=== PATIENT | male | born 1970 | race Caucasian/White ===

== ENCOUNTER 2017-05-01 18:26 | Emergency (ER) | payer BC, OTHER ==
[~2017-05-01] VITALS: Ht 182.8 cm; Wt 104.3 kg
[~2017-05-01 18:26] MED LIST: CLARITIN10 MG PO; CYCLOBENZAPRINE10 MG PO; ULTRAM50 MG PO; ZANTAC150 MG PO; ZITHROMAX Z PA250 MG PO
[2017-05-01 18:55] LABS: BASO # 0.1 10*3/uL (0.0-0.1); BASO % 0.9 % (0.0-1.0); EOS # 0.4 10*3/uL (0.0-0.4); EOS % 4.6 % (1.0-4.0); HEMATOCRIT 46.9 % (42.0-52.0); HEMOGLOBIN 15.5 g/dl (14.0-18.0); LYMPH # 2.5 10*3/uL (1.3-4.4); LYMPH % 29.6 % (27.0-41.0); MEAN CELL VOLUME 95.7 fl (80.0-94.0); MEAN CORPUSCULAR HGB 31.6 pg (27.0-31.0); MEAN PLATELET VOLUME 8.8 fl (9.6-12.3); MONO # 0.9 10*3/uL (0.1-1.0); MONO % 10.4 % (3.0-9.0); NEUT # 4.6 10*3/uL (2.3-7.9); PLATELET COUNT AUTOMATED 234 10*3/uL (130-400); RED CELL DISTRI WIDTH 13.3 % (0-14.5); WHITE BLOOD COUNT 8.6 10*3/uL (4.8-10.8)
[2017-05-01 19:05] LABS: BUN 13 mg/dl (7-24); CHLORIDE 106 mmol/L (98-107); POTASSIUM 4.7 mmol/L (3.5-5.1); SODIUM 141 mmol/L (136-145); URIC ACID 6.2 mg/dL (3.5-7.2)
[2017-05-01] MEDS ORDERED: COLCRYS0.6 M1 PO (19:08)
== END 2017-05-01 20:14 | disposition home or self-care (01) ==
LOC: ED 18:26
PROVIDERS: Nurse Practitioner Family
DX: M10.9 Gout, unspecified (principal); M79.674 Pain in right toe(s); F17.200 Nicotine dependence, unspecified, uncomplicated

== ENCOUNTER → 2017-10-23 | Outpatient (CLI) | payer BC ==
[~2017-10-23] MED LIST changes: +COLCRYS0.6 M1 PO
[2017-10-23 09:02] LABS: ALBUMIN 3.7 gm/dl (3.1-4.5); ALKALINE PHOSPHATASE 94 U/L (45-117); BUN 23 mg/dl (7-24); CHLORIDE 107 mmol/L (98-107); CHOLESTEROL 184 mg/dL (<200); CREATININE 1.25 mg/dL (0.70-1.30); HDL CHOLESTEROL 38 mg/dl (40-60); LDL CHOLESTEROL 125 mg/dL (9-159); POTASSIUM 4.5 mmol/L (3.5-5.1); SGOT/AST 16 IU/L (3-35); SGPT/ALT 27 U/L (12-78); SODIUM 141 mmol/L (136-145); TOTAL PROTEIN 7.6 gm/dL (6.4-8.2); TRIGLYCERIDES 103 mg/dl (<150); VLDL CHOLESTEROL 21 mg/dL (6-40)
[2017-10-23 09:04] LABS: HEMATOCRIT 49.2 % (42.0-52.0); HEMOGLOBIN 16.3 g/dl (14.0-18.0); MEAN CELL VOLUME 94.6 fl (80.0-94.0); MEAN CORPUSCULAR HGB 31.3 pg (27.0-31.0); MEAN CORPUSCULAR HGB CONC 33.1 g/dl (33.0-37.0); MEAN PLATELET VOLUME 9.1 fl (9.6-12.3); RED BLOOD COUNT 5.2 10*6/uL (4.50-5.90); WHITE BLOOD COUNT 7.7 10*3/uL (4.8-10.8)
[2017-10-23 09:10] LABS: VITAMIN D, 25-HYDROXY 17.9 ng/mL (30-100)
[2017-10-25 12:06] LABS: TESTOSTERONE FREE, (DIRECT) 8.7 pg/mL (6.8-21.5)
== END | disposition home or self-care (01) ==
LOC: LAB 07:27
PROVIDERS: Family Medicine
DX: E78.00 Pure hypercholesterolemia, unspecified (principal); M25.50 Pain in unspecified joint; E55.9 Vitamin D deficiency, unspecified; M79.1 Myalgia

== ENCOUNTER → 2018-11-28 | Outpatient (CLI) | payer OTHER ==
[~2018-11-28] MED LIST changes: +CIPRO500 MG PO; +FLAGYL500 MG PO; +Motrin,Rufen800 MG PO
== END | disposition home or self-care (01) ==
LOC: US 00:26
DX: I73.9 Peripheral vascular disease, unspecified (principal); L81.9 Disorder of pigmentation, unspecified; R20.2 Paresthesia of skin

== ENCOUNTER → 2019-02-17 | Outpatient (CLI) | payer OTHER | END | disposition home or self-care (01) | LOC: ORTHO 01:18 | DX: M79.641 Pain in right hand (principal) ==

== ENCOUNTER 2019-03-13 08:50 | Emergency (ER) | payer OTHER ==
[~2019-03-13] VITALS: Ht 182.8 cm; Wt 106.6 kg
[~2019-03-13 08:50] MED LIST changes: -CIPRO500 MG PO; -FLAGYL500 MG PO; -Motrin,Rufen800 MG PO
[2019-03-13 09:38] LABS: BASO # 0.1 10*3/uL (0.0-0.1); BASO % 0.6 % (0.0-1.0); EOS # 0.1 10*3/uL (0.0-0.4); EOS % 0.9 % (1.0-4.0); HEMATOCRIT 46.4 % (42.0-52.0); HEMOGLOBIN 15.4 g/dl (14.0-18.0); LYMPH # 1.3 10*3/uL (1.3-4.4); LYMPH % 10.1 % (27.0-41.0); MEAN CELL VOLUME 95.5 fl (80.0-94.0); MEAN CORPUSCULAR HGB 31.7 pg (27.0-31.0); MEAN CORPUSCULAR HGB CONC 33.2 g/dl (33.0-37.0); MEAN PLATELET VOLUME 9.1 fl (9.6-12.3); MONO # 1.2 10*3/uL (0.1-1.0); MONO % 9.1 % (3.0-9.0); PLATELET COUNT AUTOMATED 229 10*3/uL (130-400); RED BLOOD COUNT 4.86 10*6/uL (4.50-5.90); RED CELL DISTRI WIDTH 13.3 % (0-14.5); WHITE BLOOD COUNT 12.7 10*3/uL (4.8-10.8)
[2019-03-13 09:52] LABS: ALBUMIN 3.7 gm/dl (3.1-4.5); ALKALINE PHOSPHATASE 80 U/L (45-117); BUN 10 mg/dl (7-24); CHLORIDE 108 mmol/L (98-107); CREATININE 0.84 mg/dL (0.70-1.30); LIPASE 79 U/L (73-393); POTASSIUM 3.8 mmol/L (3.5-5.1); SGOT/AST 12 IU/L (3-35); SGPT/ALT 18 U/L (12-78); SODIUM 139 mmol/L (136-145); TOTAL PROTEIN 7.3 gm/dL (6.4-8.2)
[2019-03-13 10:25] LABS: BILIRUBIN NEGATIVE (NEGATIVE); BLOOD NEGATIVE (NEGATIVE); CLARITY CLEAR (CLEAR); COLOR YELLOW (YELLOW); GLUCOSE NEGATIVE (NEGATIVE); KETONE NEGATIVE (NEGATIVE); LEUKO ESTERASE NEGATIVE (NEGATIVE); NITRITE NEGATIVE (NEGATIVE); SPECIFIC GRAVITY <= 1.005 (1.005-1.030); UROBILINOGEN 0.2 E.U./dl (0.2-1.0)
[2019-03-13] MEDS ORDERED: CIPRO500 MG PO (11:02)
[2019-03-13] MEDS ORDERED: Motrin,Rufen800 MG PO (11:02)
[2019-03-13] MEDS ORDERED: FLAGYL500 MG PO (11:02)
== END 2019-03-13 11:14 | disposition home or self-care (01) ==
LOC: ED 08:50
PROVIDERS: Emergency Medicine
DX: K57.32 Diverticulitis of large intestine without perforation or abscess without bleeding (principal); Z79.899 Other long term (current) drug therapy

== ENCOUNTER → 2019-04-09 | Outpatient (CLI) | payer OTHER ==
[~2019-04-09] MED LIST changes: +CIPRO500 MG PO; +FLAGYL500 MG PO; +Motrin,Rufen800 MG PO
[2019-04-09 14:23] LABS: HEMATOCRIT 49.3 % (42.0-52.0); HEMOGLOBIN 16.1 g/dl (14.0-18.0); MEAN CELL VOLUME 95.5 fl (80.0-94.0); MEAN CORPUSCULAR HGB 31.2 pg (27.0-31.0); MEAN CORPUSCULAR HGB CONC 32.7 g/dl (33.0-37.0); MEAN PLATELET VOLUME 8.9 fl (9.6-12.3); RED BLOOD COUNT 5.16 10*6/uL (4.50-5.90); RED CELL DISTRI WIDTH 13.1 % (0-14.5); WHITE BLOOD COUNT 14.3 10*3/uL (4.8-10.8)
[2019-04-09 14:37] LABS: ALBUMIN 3.8 gm/dl (3.1-4.5); ALKALINE PHOSPHATASE 91 U/L (45-117); BUN 12 mg/dl (7-24); CHLORIDE 106 mmol/L (98-107); CREATININE 1.03 mg/dL (0.70-1.30); POTASSIUM 4.4 mmol/L (3.5-5.1); SGOT/AST 14 IU/L (3-35); SGPT/ALT 20 U/L (12-78); SODIUM 138 mmol/L (136-145); TOTAL PROTEIN 7.4 gm/dL (6.4-8.2)
== END | disposition home or self-care (01) ==
LOC: LAB 14:06
PROVIDERS: Family Medicine
DX: K57.92 Diverticulitis of intestine, part unspecified, without perforation or abscess without bleeding (principal)

== ENCOUNTER → 2020-01-15 | Outpatient (CLI) | payer OTHER ==
[2020-01-15 08:31] LABS: HEMATOCRIT 49.1 % (42.0-52.0); MEAN CELL VOLUME 93.3 fl (80.0-94.0); MEAN CORPUSCULAR HGB 31.2 pg (27.0-31.0); MEAN CORPUSCULAR HGB CONC 33.4 g/dl (33.0-37.0); MEAN PLATELET VOLUME 9.1 fl (9.6-12.3); RED BLOOD COUNT 5.26 10*6/uL (4.50-5.90); RED CELL DISTRI WIDTH 13.1 % (0-14.5); WHITE BLOOD COUNT 6.4 10*3/uL (4.8-10.8)
[2020-01-15 09:01] LABS: BUN 19 mg/dl (7-24); CHLORIDE 110 mmol/L (98-107); CHOLESTEROL 194 mg/dL (<200); CREATININE 1.02 mg/dL (0.70-1.30); SGOT/AST 23 IU/L (3-35); SGPT/ALT 29 U/L (12-78); SODIUM 138 mmol/L (136-145); TOTAL PROTEIN 7.3 gm/dL (6.4-8.2); TRIGLYCERIDES 149 mg/dl (<150); VLDL CHOLESTEROL 30 mg/dL (6-40)
[2020-01-15 09:10] LABS: ALKALINE PHOSPHATASE 89 U/L (45-117); CPK 170 U/L (39-308); HDL CHOLESTEROL 36 mg/dl (40-60); LDL CHOLESTEROL 128 mg/dL (9-159)
== END | disposition home or self-care (01) ==
LOC: LAB 06:52
PROVIDERS: Family Medicine
DX: M19.90 Unspecified osteoarthritis, unspecified site (principal); E78.00 Pure hypercholesterolemia, unspecified; E55.9 Vitamin D deficiency, unspecified; R53.83 Other fatigue

== ENCOUNTER → 2020-07-10 | Outpatient (CLI) | payer OTHER | END | disposition home or self-care (01) | LOC: RAD 12:17 | PROVIDERS: ATTEND Family Medicine | DX: R05 Cough (principal); R06.02 Shortness of breath ==

== ENCOUNTER → 2020-12-30 | Outpatient (CLI) | payer OTHER | END | disposition home or self-care (01) | LOC: RAD 14:44 | PROVIDERS: ATTEND Family Medicine | DX: R06.02 Shortness of breath (principal) ==

== ENCOUNTER → 2021-01-01 | Outpatient (CLI) | payer OTHER ==
[2021-01-01 11:45] LABS: BASO % 0.6 % (0.0-1.0); EOS # 0.1 10*3/uL (0.0-0.4); EOS % 2.9 % (1.0-4.0); LYMPH # 1.1 10*3/uL (1.3-4.4); LYMPH % 22.4 % (27.0-41.0); MEAN CELL VOLUME 91.9 fl (80.0-94.0); MEAN CORPUSCULAR HGB 30.8 pg (27.0-31.0); MEAN CORPUSCULAR HGB CONC 33.5 g/dl (33.0-37.0); MEAN PLATELET VOLUME 9.5 fl (9.6-12.3); MONO # 0.5 10*3/uL (0.1-1.0); NEUT % 62.5 % (47.0-73.0); PLATELET COUNT AUTOMATED 207 10*3/uL (130-400); RED BLOOD COUNT 5.33 10*6/uL (4.50-5.90); RED CELL DISTRI WIDTH 13.1 % (0-14.5); WHITE BLOOD COUNT 4.8 10*3/uL (4.8-10.8)
[2021-01-01 12:33] LABS: ALBUMIN 3.6 gm/dl (3.1-4.5); BUN 13 mg/dl (7-24); CHLORIDE 105 mmol/L (98-107); POTASSIUM 4.3 mmol/L (3.5-5.1); SGPT/ALT 68 U/L (12-78); SODIUM 139 mmol/L (136-145)
[2021-01-01 12:35] LABS: ALKALINE PHOSPHATASE 94 U/L (45-117); CREATININE 0.99 mg/dL (0.70-1.30); SGOT/AST 34 IU/L (3-35); TOTAL PROTEIN 7.2 gm/dL (6.4-8.2)
== END | disposition home or self-care (01) ==
LOC: LAB 10:53
PROVIDERS: ATTEND Family Medicine
DX: R53.83 Other fatigue (principal)

== ENCOUNTER → 2021-09-22 | Outpatient (CLI) | payer OTHER ==
[2021-09-22 16:25] LABS: ALBUMIN 3.9 gm/dl (3.1-4.5); ALKALINE PHOSPHATASE 94 U/L (45-117); BUN 14 mg/dl (7-24); CHLORIDE 106 mmol/L (98-107); CREATININE 0.87 mg/dL (0.70-1.30); POTASSIUM 3.9 mmol/L (3.5-5.1); SGOT/AST 16 IU/L (3-35); SGPT/ALT 33 U/L (12-78); SODIUM 139 mmol/L (136-145); TOTAL PROTEIN 7.5 gm/dL (6.4-8.2)
== END | disposition home or self-care (01) ==
LOC: LAB 15:30
PROVIDERS: ATTEND Family Medicine
DX: U07.1 COVID-19 (principal)

== ENCOUNTER → 2021-09-29 | Outpatient (CLI) | payer OTHER | END | disposition home or self-care (01) | LOC: RAD 08:30 | PROVIDERS: ATTEND Family Medicine | DX: R07.89 Other chest pain (principal); Z86.16 Personal history of COVID-19 ==

== ENCOUNTER → 2021-10-23 | Day surgery (SDC) | payer OTHER ==
[~2021-10-23] VITALS: Ht 779.7 cm
[2021-10-23 11:12] VITALS: BP 117/81
[2021-10-23 11:55] VITALS: BP 103/62
[2021-10-23 12:10] VITALS: BP 123/77
[2021-10-23 12:25] VITALS: BP 124/78
== END | disposition home or self-care (01) ==
LOC: SDC 09-19 13:15
PROVIDERS: ATTEND Surgery
DX: Z12.11 Encounter for screening for malignant neoplasm of colon (principal); D12.4 Benign neoplasm of descending colon; F17.210 Nicotine dependence, cigarettes, uncomplicated; Z79.899 Other long term (current) drug therapy; Z20.822 Contact with and (suspected) exposure to COVID-19

== ENCOUNTER → 2022-07-02 | Outpatient (CLI) | payer OTHER | END | disposition home or self-care (01) | LOC: RAD 14:00 | PROVIDERS: ATTEND Family Medicine | DX: R06.02 Shortness of breath (principal) ==

== ENCOUNTER → 2022-07-13 | Outpatient (CLI) | payer OTHER ==
[2022-07-13 15:49] LABS: HEMATOCRIT 48.7 % (42.0-52.0); MEAN CELL VOLUME 92.8 fl (80.0-94.0); MEAN CORPUSCULAR HGB 31.8 pg (27.0-31.0); MEAN CORPUSCULAR HGB CONC 34.3 g/dl (33.0-37.0); MEAN PLATELET VOLUME 8.9 fl (9.6-12.3); RED BLOOD COUNT 5.25 10*6/uL (4.50-5.90); RED CELL DISTRI WIDTH 12.8 % (0-14.5); WHITE BLOOD COUNT 9.6 10*3/uL (4.8-10.8)
[2022-07-13 16:11] LABS: BUN 19 mg/dl (7-24); CHLORIDE 107 mmol/L (98-107); CHOLESTEROL 240 mg/dL (<200); CREATININE 0.81 mg/dL (0.70-1.30); SGOT/AST 20 IU/L (3-35); SGPT/ALT 33 U/L (12-78); SODIUM 136 mmol/L (136-145); TRIGLYCERIDES 334 mg/dl (<150)
[2022-07-13 16:17] LABS: ALKALINE PHOSPHATASE 98 U/L (45-117); FREE T4 0.93 ng/dl (0.76-1.46); LDL CHOLESTEROL 135 mg/dL (9-159); TOTAL PROTEIN 7.4 gm/dL (6.4-8.2)
[2022-07-13 16:43] LABS: VITAMIN D, 25-HYDROXY 33.3 ng/mL (30-100)
[2022-07-17 15:06] LABS: TESTOSTERONE FREE, (DIRECT) 7.6 pg/mL (7.2-24.0)
== END | disposition home or self-care (01) ==
LOC: LAB 15:20
PROVIDERS: ATTEND Family Medicine
DX: Z13.220 Encounter for screening for lipoid disorders (principal); Z12.5 Encounter for screening for malignant neoplasm of prostate; E55.9 Vitamin D deficiency, unspecified; R06.2 Wheezing; R53.83 Other fatigue; R05.9 Cough, unspecified

== ENCOUNTER → 2025-02-06 | Outpatient (CLI) | payer OTHER ==
[2025-02-06 09:34] LABS: HEMATOCRIT 50.6 % (42.0-52.0); MEAN CELL VOLUME 95.1 fl (80.0-94.0); MEAN CORPUSCULAR HGB 31.2 pg (27.0-31.0); MEAN CORPUSCULAR HGB CONC 32.8 g/dl (33.0-37.0); MEAN PLATELET VOLUME 8.7 fl (9.6-12.3); RED BLOOD COUNT 5.32 10*6/uL (4.50-5.90); RED CELL DISTRI WIDTH 13.9 % (0-14.5); WHITE BLOOD COUNT 7.5 10*3/uL (4.8-10.8)
[2025-02-06 10:18] LABS: ALKALINE PHOSPHATASE 84 U/L (46-116); BUN 15 mg/dl (9-23); CHLORIDE 109 mmol/L (98-107); CHOLESTEROL 218 mg/dL (<200); LDL CHOLESTEROL 139 mg/dL (9-159); SGPT/ALT 16 U/L (5-49); TRIGLYCERIDES 151 mg/dl (<150)
[2025-02-06 10:21] LABS: VITAMIN D, 25-HYDROXY 31.6 ng/mL (30-100)
== END | disposition home or self-care (01) ==
LOC: LAB 09:11
PROVIDERS: ATTEND Family Medicine
DX: E74.9 Disorder of carbohydrate metabolism, unspecified (principal); N52.9 Male erectile dysfunction, unspecified; Z12.5 Encounter for screening for malignant neoplasm of prostate; E55.9 Vitamin D deficiency, unspecified; R53.83 Other fatigue; R53.82 Chronic fatigue, unspecified; Z00.00 Encounter for general adult medical examination without abnormal findings

== ENCOUNTER → 2025-06-11 | Outpatient (CLI) | payer OTHER | END | disposition home or self-care (01) | LOC: ORTHO 01:34 | PROVIDERS: ATTEND Orthopaedic Surgery | DX: M19.071 Primary osteoarthritis, right ankle and foot (principal); M79.674 Pain in right toe(s) ==

== ENCOUNTER → 2025-07-24 | Day surgery (SDC) | payer OTHER ==
[2025-07-19 11:17] LABS: BUN 14 mg/dl (9-23)
[2025-07-24] VITALS (8 sets, daily range): BP systolic 120–130; BP diastolic 63–71
[~2025-07-24] MED LIST changes: +ACETAMINOPHEN 100 ML IV ONE; +Albuterol Sulf/Ipratropium 3 ML VIAL NEB ONE; +BUPIVACAINE 0.5% 30 ML SINGLE DOSE VIAL IJ ONE; +Dexamethasone Sodium Phospha 4 MG/ML VIAL IV ONE; +GLYCOPYRROLATE IN WATER/PF 0.4 MG/2 ML SYRINGE IV ONE; +HYDROCODONE-AC1 EAC1 PO; +Ketamine Hydrochloride 500 MG/10 ML VIAL IV ONE; +Lactated Ringer's Solution 1,000 ML IV ONE; +Lidocaine Hydrochloride 2% 5 ML SDV IV ONE; +Lidocaine Hydrochloride 30 ML VIAL ONE; +MIDAZOLAM HCL IN 0.9 % NACL/PF 50 MG/50 ML PLAST..BAG IV ONE; +MOUNJARO2.5 MG/0.1 SQ; +Ondansetron Hydrochloride 4 MG/2 ML VIAL IV ONE; +PROPOFOL 200 MG/20 ML VIAL IV ONE; +SEVOFLURANE 250 ML BOT INH ONE; +SODIUM CHLORIDE 0.9% 50 ML IV ONE; +Water, Sterile 10 ML VIAL IV ONE; +ePHEDrine Sulfate 25 MG/5 ML SYRINGE IV ONE
== END | disposition home or self-care (01) ==
LOC: SDC 07-23 12:30
PROVIDERS: ATTEND Orthopaedic Surgery
DX: M20.21 Hallux rigidus, right foot (principal); L60.0 Ingrowing nail; M89.8X7 Other specified disorders of bone, ankle and foot; G47.30 Sleep apnea, unspecified; F17.200 Nicotine dependence, unspecified, uncomplicated; Z79.899 Other long term (current) drug therapy; Z98.890 Other specified postprocedural states; Z90.89 Acquired absence of other organs

== ENCOUNTER → 2025-08-15 | Outpatient (CLI) | payer OTHER ==
[~2025-08-15] MED LIST changes: -ACETAMINOPHEN 100 ML IV ONE; -Albuterol Sulf/Ipratropium 3 ML VIAL NEB ONE; -BUPIVACAINE 0.5% 30 ML SINGLE DOSE VIAL IJ ONE; -Dexamethasone Sodium Phospha 4 MG/ML VIAL IV ONE; -GLYCOPYRROLATE IN WATER/PF 0.4 MG/2 ML SYRINGE IV ONE; -Ketamine Hydrochloride 500 MG/10 ML VIAL IV ONE; -Lactated Ringer's Solution 1,000 ML IV ONE; -Lidocaine Hydrochloride 2% 5 ML SDV IV ONE; -Lidocaine Hydrochloride 30 ML VIAL ONE; -MIDAZOLAM HCL IN 0.9 % NACL/PF 50 MG/50 ML PLAST..BAG IV ONE; -Ondansetron Hydrochloride 4 MG/2 ML VIAL IV ONE; -PROPOFOL 200 MG/20 ML VIAL IV ONE; -SEVOFLURANE 250 ML BOT INH ONE; -SODIUM CHLORIDE 0.9% 50 ML IV ONE; -Water, Sterile 10 ML VIAL IV ONE; -ePHEDrine Sulfate 25 MG/5 ML SYRINGE IV ONE
[2025-08-15 09:10] LABS: MEAN CELL VOLUME 96.9 fl (80.0-94.0); MEAN CORPUSCULAR HGB 33.1 pg (27.0-31.0); MEAN PLATELET VOLUME 8.8 fl (9.6-12.3); NUCLEATED RED BLOOD CELL 0.0 % (0.0-0.0); NUCLEATED RED BLOOD CELL 0.0 10*3/uL (0.0-0.0); PLATELET COUNT AUTOMATED 271.0 10*3/uL (130-400); RED CELL DISTRI WIDTH 12.9 % (0-14.5)
[2025-08-15 09:45] LABS: BUN 10 mg/dl (9-23); SGPT/ALT 12 U/L (5-49)
== END | disposition home or self-care (01) ==
LOC: LAB 07:40
PROVIDERS: Family Medicine; ATTEND Orthopaedic Surgery
DX: M19.071 Primary osteoarthritis, right ankle and foot (principal); M20.21 Hallux rigidus, right foot; R53.83 Other fatigue; D51.9 Vitamin B12 deficiency anemia, unspecified